=== PATIENT | female | born 1955 | race Caucasian/White ===

== ENCOUNTER 2022-12-15 12:47 | Outpatient (REF) | payer MEDICARE, MEDICAID, SELFPAY ==
--- NOTE | ~2022-12-15 | MR_ITS ---
EXAMINATION: MR LUMBAR SPINE WITHOUT CONTRAST CLINICAL INFORMATION: Left lower extremity radiculopathy COMPARISON: None TECHNIQUE: MRI of the lumbar spine was obtained using routine sequences without contrast. FINDINGS: Normal anatomic alignment. Heterogeneous marrow signal without suspicious focal osseous lesion. Plate marrow edema at L5-S1 The vertebral body heights are maintained. Disc desiccation and height loss at L5-S1. The conus medullaris terminates at the level of L1-L2. The distal spinal cord is normal in appearance. The cauda equina nerve roots appear normal. No significant abnormalities of the paraspinal musculature.. Limited evaluation of the intra-abdominal structures without significant abnormalities. The abdominal aorta is of normal contour and caliber. SPINAL LEVELS: L1-L2: No significant spinal canal or neuroforaminal narrowing. Mild facet arthropathy L2-L3: Moderate facet arthropathy. Shallow disc bulge with superimposed right foraminal protrusion. Mild right neural foraminal narrowing. No significant spinal canal stenosis L3-L4: Right eccentric disc bulge and mild facet arthropathy. No significant central spinal canal stenosis. Mild bilateral neural foraminal narrowing, right greater than left. L4-L5: Moderate facet arthropathy. Shallow disc bulge. No significant central spinal canal stenosis. Mild bilateral neural foraminal narrowing. L5-S1: Moderate facet arthropathy with left facet periarticular marrow edema. Broad-based disc bulge with left greater than right foraminal component. Mild subarticular zone narrowing. No significant central spinal canal stenosis. Moderate right and severe left neural foraminal narrowing with left L5 nerve root impingement MR/MR lumbar spine wo con IMPRESSION: 1. Multilevel lumbar spondylosis as described above. No significant central spinal canal narrowing. 2. At L5-S1, there is moderate facet arthropathy with left facet periarticular edema. There is moderate right and severe left neural foraminal narrowing with left L5 nerve root impingement. Correlate with left L5 radiculopathy.
== END 2022-12-15 12:48 | disposition home or self-care (01) ==
LOC: HO.MRI 12:47
PROVIDERS: PCP Internal Medicine; Visit Provider Psychiatry & Neurology Neurology
DX: M54.16 Radiculopathy, lumbar region (principal)
CPT/HCPCS: 72148

== ENCOUNTER 2025-05-15 15:46 | Outpatient (AMB) | payer OTHER, SELFPAY ==
--- NOTE | 2025-05-15 15:48 | A.OFFVIS_ITS ---
Intake Visit Reasons: 6m /ms Allergies acetaminophen (From PERCOCET) Allergy (Mild, Unverified 05/15/25 15:59) RASH oxycodone (From PERCOCET) Allergy (Mild, Unverified 05/15/25 15:59) RASH clonidine (CLONIDINE) Adverse Reaction (Unknown, Unverified 05/15/25 15:59) MUSCLE SPASM Medication List - Last Reconciled 05/15/25 by Kandice Urias CNP cyclobenzaprine 5 mg PO BID PRN fluoxetine 40 mg PO DAILY gabapentin 600 mg PO BEDTIME lorazepam 0.5 mg PO BID HPI Comments Details: She was doing okay. She was exercising regularly, strength to LUE has improved. Slight numbness to tip of left index finger continues. No pain to neck, left shoulder, or left arm. Occasional low back pain, does not interfere with daily functioning. No numbness or tingling to legs. Mood was okay. Sleep was okay. On 09/29/22, after doing some pushups she was doing some weights for the upper body using 50 pound weights and developed excruciating pain in her neck radiating to the left shoulder and down the left arm with numbness in the index finger. She was seen at [facility] where a CAT scan showed a disc herniation, report was not available for review. She was treated with one week of prednisone with significant improvement but the pain persisted and was treated with second course of prednisone with good results. [facility] Medical History (Updated 05/15/25 @ 15:54 by Kandice Urias CNP) Cervical disc herniation Depression Hip arthritis Anxiety disorder Cervical myelopathy Multiple sclerosis Review of Systems Const Denies chills, Denies daytime sleepiness, Reports difficulty sleeping, Denies fatigue, Denies fever(s), Denies frequent falls, Reports headache(s), Denies increased appetite, Denies poor appetite, Denies snoring, Denies weakness, Denies weight gain and Denies weight loss Eyes Denies loss of vision ENT Denies vertigo, Denies dizziness, Reports headache(s) and Reports neck pain Card Denies chest pain at rest, Denies chest pain with activity, Denies syncope, Denies leg edema, Denies palpitations, Denies dyspnea and Denies dyspnea on exertion Resp Denies cough, Denies dyspnea, Denies dyspnea on exertion and Denies snoring GI Denies abdominal pain, Denies constipation, Denies heartburn, Denies diarrhea and Denies nausea Denies urinary frequency, Denies urinary incontinence and Denies urinary urgency Musc Denies abnormal gait, Reports back pain, Reports myalgias, Reports arthralgias, Reports neck pain, Denies numbness and Denies tingling Neuro Denies abnormal gait, Denies vertigo, Denies dizziness, Denies syncope, Denies frequent falls, Reports headache(s), Denies lack of coordination, Denies loss of vision, Reports memory loss, Denies numbness, Denies Other visual disturbances, Denies restless legs, Denies seizure-like activity, Denies tingling, Denies paresthesias, Reports tremor(s) and Denies weakness Psych Reports anxiety, Reports depression, Denies auditory hallucinations, Reports memory loss and Denies visual hallucinations Endo Denies fatigue and Denies palpitations Physical Exam Const Other: General Appearance:? normal, in no acute distress. Heart:? S1, S2 normal, no murmurs. Lungs:? clear anteriorly and posteriorly. Musculoskeletal:? normal. Extremities:? no edema. Psych:? alert, oriented, cognitive function intact, cooperative with exam. Neuro Other: Abnormal Neurological Findings:?Improved?weakness of left triceps 5-/5. 3+ reflexes in the upper extremities, including pectorals. 4+ reflexes of the knees and ankles, asymmetrical, R>L. Sustained ankle clonus on the right and unsustained clonus on the left. Increased tone in the right lower extremity with some spasticity. Plantar response on the right is extensor. On the left is equivocal. No sensory deficits. Shortening of heel cords Mental Status: alert and oriented X 3. Normal attention, orientation, memory, and affect. Cranial Nerves: Pupils are equal, round, and reactive to light. External ocular muscles are intact. Visual rosenthal are full, no ptosis. Face is symmetrical, no facial weakness or droop. Facial sensations are normal. Tongue protrudes in midline. Palate elevates symmetrically. Shoulder shrugging is normal Motor Examination: As above, otherwise normal muscle tone, bulk and strength. No atrophy or fasciculations. No drift of the extended upper extremities. DTRs as above. Plantars as above. Sensory Exam: Normal light touch, temperature, pinprick, vibration, and joint- position sensations. Rhomberg sign is absent. Coordination: No ataxia. No titubation. Gait Exam: Within normal limits. Cerebellar Signs: [id number] and [id number] is normal. No dysdiadochokinesia. Extrapyramidal System: No tremor, rigidity with normal facial expressions. No bradykinesia. No bradyphrenia. Normal arm swing and posture. No propulsion or retropulsion. Speech: Normal. No dysphasia or dysarthria. Assessment & Plan Assessment & Plan (1) Lumbar radiculopathy: Code(s): M54.16 - Radiculopathy, lumbar region Category: Medical Plan: Continue gabapentin 300mg 2 capsules at bedtime Continue cyclobenzaprine 5mg 1 tablet as needed twice a day for muscle spasms/pain (2) Anxiety disorder: Code(s): F41.9 - Anxiety disorder, unspecified Category: Medical Qualifiers: Anxiety disorder type: unspecified anxiety disorder Qualified Code(s): F41.9 - Anxiety disorder, unspecified Plan: Continue lorazepam 0.5mg 1 tablet twice a day (3) Cervical radiculopathy: Code(s): M54.12 - Radiculopathy, cervical region Category: Medical Plan: . Coding Level of Care Code Est Pt Level 4 (91492) Diagnoses Lumbar radiculopathy M54.16 Anxiety disorder, unspecified type F41.9 Anxiety disorder type: unspecified anxiety disorder Cervical radiculopathy M54.12
--- OUTSIDE RECORDS SUMMARY | 2025-05-15 16:28 | XMS_ITS | Clinical Summary ---
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
--- OUTSIDE RECORDS SUMMARY | 2025-05-15 16:28 | XMS_ITS | Clinical Summary ---
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 Name Role Phone Ann Marie Segovia MD Primary Care Provider Allergies Active Allergy Reactions Criticality Noted Date Comments Oxycodone-Acetaminophen Rash Low 04/01/2021 Medications cyclobenzaprine (FLEXERIL) 10 MG tablet Take 10 mg by mouth 3 (three) times a day if needed Take 0.5 to 1 tablet by mouth as needed Active gabapentin (NEURONTIN) 300 MG capsule Take 300 mg by mouth every night Take 1-2 capsules at bedtime Active FLUoxetine (PROzac) 40 MG capsule Take 1 capsule by mouth 1 (one) time each day 03/03/2021 Active LORazepam (ATIVAN) 1 MG tablet 09/15/2021 Active Active Problems Problem Noted Date Diagnosed Date Anxiety 04/01/2021 Benign paroxysmal positional vertigo 04/01/2021 Cervical disc disorder with radiculopathy 2020 Cataract 04/01/2021 Postmenopausal bleeding 04/01/2021 Concussion injury of brain 04/01/2021 Insomnia 04/01/2021 Pain in hip 04/01/2021 Panic attack 04/01/2021 Retinal detachment 04/01/2021 Rupture of breast implant 04/01/2021 Vitamin D deficiency 04/01/2021 Vitreous floaters 04/01/2021 Sprain of anterior cruciate ligament of left knee, subsequent encounter 10/30/2015 Pain in left knee 10/29/2015 Family History Medical History Relation Comments Colonic polyp Brother Panic disorder Brother Cancer Father Heart disease Mother Hyperlipidemia Mother Hypertension Mother Colonic polyp Sister Heart attack Sister Relation Status Comments Brother Alive Father Alive Mother Sister Alive Social History Tobacco Use Types Packs/Day Years Used Date Smoking Tobacco: Never Smokeless Tobacco: Never Tobacco Cessation:Counseling Given: No Alcohol Use Standard Drinks/Week Comments Never 0 (1 standard drink = 0.6 oz pur e alcohol) Comments Unknown Sex and Gender Information Value Date Recorded Sex Assigned at Not on file Legal Sex Female 11:21 AM EDT Gender Identity Not on file Sexual Orientation Not on file Last Filed Vital Signs Vital Sign Reading Time Taken Comments Blood Pressure 122/82 09/22/2022 2:15 PM EST Pulse 61 09/22/2022 2:15 PM EST Temperature - - Respiratory Rate - - Oxygen Saturation 99% 09/23/2021 3:37 PM EST Inhaled Oxygen Concentration - - Weight 56.7 kg (125 lb) 09/22/2022 2:15 PM EST Height 170.2 cm (5' 7 ) 04/08/2021 2:31 PM EDT Body Mass Index 19.58 04/08/2021 2:31 PM EDT Plan of Treatment Health Maintenance Due Date Last Done Comments Breast Cancer Screening 1955 Pneumococcal Vaccine: 50+ Ye ars (1 of 2 - PCV) 1976 Colorectal Cancer Screening: Annual FOBT 2006 Colorectal Cancer Screening: Colonoscopy 2006 Colorectal Cancer Screening: Sigmoidoscopy 2006 Influenza Vaccine (#1) 2025 Hepatitis B Vaccine Aged Out No longe r eligible based on patient's age to complete this topic Insurance Medicare Medicaid [place] Care Teams Ground Hand Relationship Specialty Start Date End Date Ann Marie Segovia MD [address] [place] [address] PCP - General Internal Medicine 02/13/21
== END 2025-05-15 16:09 | disposition home or self-care (01) ==
LOC: HO.HSM 15:47
PROVIDERS: PCP Internal Medicine; Referring Provider Internal Medicine; Visit Provider Registered Nurse
DX: M54.16 Radiculopathy, lumbar region (principal); F41.9 Anxiety disorder, unspecified; M54.12 Radiculopathy, cervical region
CPT/HCPCS: 99214

== ENCOUNTER → 2025-05-15 15:46 | Outpatient (BNVA) | payer OTHER, SELFPAY | PROVIDERS: PCP Internal Medicine; Referring Provider Internal Medicine; Visit Provider Registered Nurse | DX: M54.16 Radiculopathy, lumbar region (principal); F41.9 Anxiety disorder, unspecified; M54.12 Radiculopathy, cervical region | CPT/HCPCS: 99212 ==